=== PATIENT | male | born 1960 | race Caucasian/White ===

== ENCOUNTER 2017-02-01 19:38 | Day surgery (SDC) | payer BC ==
[2017-02-01] MEDS ORDERED: CENTRUM COMPLE1 EAC1 PO (20:07)
[2017-02-01 21:07] LABS: BASO % 0.3 % (0-2); EOSINOPHIL ABSOLUTE COUNT 0.2 tho/cmm (0.0-0.7); HCT-HEMATOCRIT 49.2 % (36.0-53.5); IMMATURE GRANULOCYTES ABSOLUTE 0.02 tho/cmm (0-0.03); IMMATURE GRANULOCYTES PERCENT 0.2 % (0-0.3); LYMPH % 24.7 % (20-45); LYMPH ABSOLUTE COUNT 2.6 tho/cmm (0.8-4.5); MCHC MEAN CORPUSCULAR HGB CONC 34.6 % (32.0-36.0); MCV (MEAN CELL VOLUME) 92.7 fl (82.0-96.0); MEAN PLATELET VOLUME 9.8 cmc (9.4-12.4); MONO % 9.4 % (0-12); NEUTROPHIL ABSOLUTE COUNT 6.7 tho/cmm (1.6-8.0); NEUTROPHIL-AUTOMATED 6.7 tho/cmm (1.6-8.0); NEUTROPHILS % 63.4 % (40-80); PLATELET COUNT 211 tho/cmm (150-450); RED BLOOD COUNT 5.31 mil/cmm (4.40-5.70); WHITE BLOOD COUNT 10.6 tho/cmm (4.0-10.0)
[2017-02-01 21:16] LABS: ANION GAP 11 mmol/L (0-20); BLOOD UREA NITROGEN 21 mg/dl (6-24); CALCIUM 9.1 mg/dl (8.5-10.5); CARBON DIOXIDE-VENOUS 26 mmol/L (22-32); CHLORIDE 105 mmol/l (96-110); CREATININE 1.18 mg/dl (0.60-1.30); GLUCOSE 99 mg/dL (70-110); SODIUM 138 mmol/L (135-145); eGFR VALUE FOR BLACK 79 mL/Min
[2017-02-01 21:20] LABS: POTASSIUM 4.3 mmol/L (3.7-5.1)
[2017-02-02] MEDS ORDERED: LORTAB 5-325 M1 EAC1 PO (08:26)
[2017-02-02] MEDS ORDERED: COLACE100 M1 PO (08:27)
== END 2017-02-02 11:20 ==
LOC: EDMED 19:38 → EMR2 23:37 → PACU 02-02 01:06
PROVIDERS: Emergency Medicine
PROC: 0DTJ4ZZ Resection of Appendix, Percutaneous Endoscopic Approach (ICD-10-PCS; principal; 2017-02-01)
DX: K35.80 Unspecified acute appendicitis (principal); Z96.641 Presence of right artificial hip joint; Z98.890 Other specified postprocedural states
CPT/HCPCS: J1335; J2405; J7030; Q9967